=== PATIENT | female | born 1940 | race Caucasian/White ===

== ENCOUNTER 2024-02-05 16:22 | Inpatient (IN) | payer MEDICARE, OTHER ==
[~2024-02-05] VITALS: Ht 160 cm; Wt 61.2 kg
[2024-02-05 19:00] VITALS: BP 142/82; TEMP 98; O2SAT 95
[2024-02-05] MEDS ORDERED: MAGNESIUM HYDROXIDE 30 ML UDC PO PRN (19:30)
[2024-02-05] MEDS ORDERED: MAG HYDROX/AL HYDROX/SIMETH 30 ML UDC PO PRN (19:30)
[2024-02-05] MEDS ORDERED: ACETAMINOPHEN 325 MG TABLET PO PRN (19:30)
[2024-02-05] MEDS: BLOOD SUGAR DIAGNOSTIC 1 EACH STRIP IN ONE (20:02)
[2024-02-05 20:51] VITALS: BP 165/82; TEMP 97.5; O2SAT 95
[2024-02-05] MEDS: LORAZEPAM 0.5 MG TABLET PO PRN (20:52)
[2024-02-05] MEDS: TEMAZEPAM 7.5 MG CAPSULE PO PRN (21:25)
[2024-02-06] MEDS ORDERED: PANT40TA49 PO (01:32)
[2024-02-06] MEDS ORDERED: HYDR-4075 PO (01:32)
[2024-02-06] MEDS ORDERED: RIVA15TA PO (01:32)
[2024-02-06] MEDS ORDERED: LIDO700A30 TP (01:32)
[2024-02-06] MEDS ORDERED: ESCI10TA PO (01:32)
[2024-02-06] MEDS ORDERED: ATOR20TA (01:32)
[2024-02-06] MEDS ORDERED: ATEN25TA PO (01:35)
[2024-02-06] MEDS ORDERED: METH-647 PO (01:36)
[2024-02-06] MEDS ORDERED: HYDR20VI4 IJ (01:50)
[2024-02-06] MEDS ORDERED: SENN-18 PO (01:50)
[2024-02-06 08:00] VITALS: BP 133/90; TEMP 98.1; O2SAT 95
[2024-02-06] MEDS ORDERED: ESCI20TA PO (08:02)
[2024-02-06] MEDS ORDERED: SIMV10TA98 PO (08:02)
[2024-02-06] MEDS ORDERED: CREON PO (08:02)
[2024-02-06] MEDS ORDERED: VALS40TA4 PO (08:05)
[2024-02-06] MEDS: METHOCARBAMOL (500MG) 500 MG TABLET GT SCH (08:53)
[2024-02-06] MEDS: PANTOPRAZOLE 40 MG TABLET.DR PO SCH (08:53)
[2024-02-06] MEDS: LIDOCAINE 5% (PATCH) 1 EA PATCH TP SCH (08:54)
[2024-02-06] MEDS: ATENOLOL 25 MG TABLET PO SCH (08:54)
[2024-02-06] MEDS: SERTRALINE HCL 25 MG TABLET PO SCH (12:56)
[2024-02-06] MEDS: METHOCARBAMOL (500MG) 500 MG TABLET PO SCH (17:00)
[2024-02-06] MEDS: RIVAROXABAN 15 MG TABLET PO SCH (17:08)
[2024-02-06 21:10] VITALS: BP 118/71; TEMP 98; O2SAT 97
[2024-02-06] MEDS: SENNOSIDES 8.6 MG TABLET PO SCH (21:16)
[2024-02-06] MEDS: ATORVASTATIN 10 MG TABLET PO SCH (21:16)
[2024-02-07 08:00] VITALS: BP 147/80; TEMP 97.8; O2SAT 98
[2024-02-07 16:00] VITALS: BP 137/87; TEMP 97.9; O2SAT 97
[2024-02-07 21:04] VITALS: BP 130/64; TEMP 98.6; O2SAT 99
[2024-02-08 08:00] VITALS: BP 159/88; TEMP 97.5; O2SAT 97
[2024-02-08] MEDS: DIVALPROEX SODIUM 125 MG CAP.SPRINK PO SCH (10:00)
[2024-02-08] MEDS: LIPASE/PROTEASE/AMYLASE 1 EACH CAPSULE.DR PO SCH (12:59)
[2024-02-08 16:00] VITALS: BP 132/77; TEMP 97.5; O2SAT 100
[2024-02-08] MEDS ORDERED: ONDANSETRON HCL 4 MG/5 ML SOLUTION PO PRN (17:30)
[2024-02-08] MEDS: ONDANSETRON 4 MG TAB.RAPDIS PO PRN (17:37)
[2024-02-08 20:00] VITALS: BP 148/74; TEMP 98.3; O2SAT 98
[2024-02-09 08:00] VITALS: BP 140/88; TEMP 98.6; O2SAT 95
[2024-02-09] MEDS: OLANZAPINE 10 MG VIAL IM ONE (12:37)
[2024-02-09 16:00] VITALS: BP 137/86; TEMP 97.8; O2SAT 96
[2024-02-09 20:00] VITALS: BP 132/74; TEMP 98; O2SAT 98
[2024-02-10 08:00] VITALS: BP 158/84; TEMP 98; O2SAT 98
[2024-02-10 16:00] VITALS: BP 149/92; TEMP 98; O2SAT 96
[2024-02-10 20:00] VITALS: BP 148/79; TEMP 98.3; O2SAT 97
[2024-02-11 08:00] VITALS: BP 162/90; TEMP 98.8; O2SAT 96
[2024-02-11] MEDS: hydrALAZINE HCL 10 MG TABLET PO PRN (09:05)
[2024-02-11 16:00] VITALS: BP 138/72; TEMP 98.4; O2SAT 96
[2024-02-11 20:24] VITALS: BP 158/77; TEMP 98.6; O2SAT 96
[2024-02-12 08:00] VITALS: BP 172/96; TEMP 98.7; O2SAT 98
[2024-02-12 10:32] VITALS: BP 165/107
== END 2024-02-12 13:35 | DRG 885 ==
LOC: GPS 18:17
PROVIDERS: ADMIT Psychiatry & Neurology Psychosomatic Medicine
DX: F31.9 Bipolar disorder, unspecified (principal); F41.9 Anxiety disorder, unspecified; E78.5 Hyperlipidemia, unspecified; Z79.01 Long term (current) use of anticoagulants; I10 Essential (primary) hypertension; G89.29 Other chronic pain; M54.89 Other dorsalgia; Z79.899 Other long term (current) drug therapy; Z88.0 Allergy status to penicillin; K21.9 Gastro-esophageal reflux disease without esophagitis; I48.91 Unspecified atrial fibrillation; M48.56XD Collapsed vertebra, not elsewhere classified, lumbar region, subsequent encounter for fracture with routine healing; R29.6 Repeated falls; R41.9 Unspecified symptoms and signs involving cognitive functions and awareness
CPT/HCPCS: 82962-TC; 87081-TC; 97112-TC; 97116-TC; 97530-TC; J3490; Q0162